=== PATIENT | female | born 1940 | race African-American/Black ===

== ENCOUNTER → 2016-07-23 | Outpatient (CLI) | payer MEDICARE, MEDICAID ==
[~2016-07-23] MED LIST: ACET-2178 PO; ACET1TAB12 PO; ASPI-518 PO; ATOR10TA69 PO; AZIT250T6 PO; BENA10TA3 PO; METF500T4 PO; PHENDM PO; TRIA1TAB94 PO; albuterol
== END | disposition home or self-care (01) ==
LOC: MAMMO 10:22
PROVIDERS: ATTEND Internal Medicine
DX: R92.8 Other abnormal and inconclusive findings on diagnostic imaging of breast (principal); N63 Unspecified lump in breast
CPT/HCPCS: 76641; G0206